=== PATIENT | male | born 1960 | race Caucasian/White ===

== ENCOUNTER 2017-01-02 09:23 | Inpatient (IN) | payer MEDICAID, OTHER ==
[~2017-01-02] VITALS: Ht 165.1 cm; Wt 66.7 kg
[2017-01-02] MEDS ORDERED: SODIUM CHLORIDE 0.9% 1,000 ML IV ONE (09:34)
[2017-01-02] MEDS ORDERED: MORPHINE SULFATE 4 MG/ML CPJ (NOT FOR IM USE) IV STA (09:34)
[2017-01-02] MEDS ORDERED: ONDANSETRON HCL 4MG/2ML VIAL IV STA (09:34)
[2017-01-02 09:55] LABS: HEMATOCRIT. 31.9 % (42.0-52.0); MEAN CORPUSCULAR HEMOGLOBIN 21.4 pg (28.0-32.0); MEAN PLATELET VOLUME 7.5 fl (7.4-10.4); PLATELET 552 x1000/uL (130-400); RED BLOOD CELL COUNT 4.69 mill/uL (4.7-6.1); RED CELL DISTRIBUTION WIDTH 18.5 % (11.6-14.6)
[2017-01-02 10:03] LABS: INR 1.1; PROTHROMBIN TIME 11.5 sec
[2017-01-02 10:05] LABS: CARBON DIOXIDE 27 mEq/L (21-32); CHLORIDE 99 mEq/L (98-107)
[2017-01-02 10:12] LABS: TROPONIN I < 0.02 ng/mL (0.00-0.04)
[2017-01-02 10:43] LABS: PLATELET ESTIMATE INCREASED
[2017-01-02] MEDS ORDERED: LEVOFLOXACIN 750MG PREMIX 150 ML IV ONE (11:15)
[2017-01-02] MEDS ORDERED: SODIUM CHLORIDE 0.9% 1,000 ML IV SCH (11:30)
[2017-01-02] MEDS ORDERED: IPRATROPIUM/ALBUTEROL 0.5-3(2.5)MG/3ML NEB INH PRN (11:30)
[2017-01-02 11:34] LABS: CLARITY URINE CLEAR (CLEAR); COLOR URINE YELLOW (YELLOW); GLUCOSE URINE NEGATIVE (NEGATIVE); KETONES URINE NEGATIVE (NEGATIVE); LEUKOCYTE ESTERASE URINE NEGATIVE (NEGATIVE); NITRITE URINE NEGATIVE (NEGATIVE); OCCULT BLOOD URINE NEGATIVE (NEGATIVE); PH URINE 7.5 (4.5-8.0); PROTEIN URINE NEGATIVE (NEGATIVE); SPECIFIC GRAVITY URINE 1.019 (1.005-1.030); UROBILINOGEN URINE 0.2 E.U./dL (0.2-1.0)
[2017-01-02] MEDS: ONDANSETRON HCL 4MG/2ML VIAL IV PRN ×2 (12:54→18:31)
[2017-01-02] MEDS ORDERED: ONDANSETRON HCL 4MG/2ML VIAL ONE (12:56)
[2017-01-02] MEDS ORDERED: PIPERACILLIN/TAZ 3.375G PREMIX 50 ML IV SCH (14:00)
[2017-01-02 16:07] LABS: CREATINE KINASE MB FRACTION 3.6 ng/mL (0.5-3.6)
[2017-01-02] MEDS: ENOXAPARIN 40MG/0.4ML SYR SUBCUT SCH ×2 (17:00→21:22)
[2017-01-02 17:15] VITALS: BP 129/81
[2017-01-02] MEDS: SODIUM CHLORIDE 0.9% 1,000 ML IV SCH (17:15)
[2017-01-02] MEDS ORDERED: CLOP75TA33 PO (18:16)
[2017-01-02] MEDS ORDERED: OMEP20CA10 PO (18:16)
[2017-01-02] MEDS ORDERED: NIFE-1 PO (18:16)
[2017-01-02] MEDS ORDERED: HYDR12.529 PO (18:16)
[2017-01-02] MEDS ORDERED: ATOR-2 PO (18:16)
[2017-01-02] MEDS ORDERED: VALS160T2 PO (18:16)
[2017-01-02] MEDS ORDERED: GABA-531 PO (18:16)
[2017-01-02 19:29] VITALS: BP 129/81
[2017-01-02 20:00] VITALS: BP 128/80
[2017-01-02] MEDS ORDERED: MEDICATION NOT ON FORMULARY EA (Atorvastatin Calcium 80 MG) PO SCH (21:00)
[2017-01-02] MEDS: ATORVASTATIN CALCIUM 40MG TABLET PO SCH (21:00)
[2017-01-02] MEDS: PIPERACILLIN/TAZ 3.375G PREMIX 50 ML IV SCH (22:56)
[2017-01-02 23:29] LABS: CREATINE KINASE MB FRACTION 2.7 ng/mL (0.5-3.6)
[2017-01-03] VITALS: BP 122/76
[2017-01-03 04:20] VITALS: BP 124/70
[2017-01-03 06:29] LABS: BASOPHILS % 0.6 % (0.0-2.0); EOSINOPHILS % 0.8 % (0.0-5.0); HEMATOCRIT. 27.5 % (42.0-52.0); HEMOGLOBIN. 8.8 g/dL (14.0-18.0); LYMPHOCYTES % 17.5 % (20.0-50.0); MEAN CORPUSCULAR HEMOGLOBIN 21.6 pg (28.0-32.0); MEAN CORPUSCULAR VOLUME 67.6 fL (80.0-94.0); MONOCYTES % 8.9 % (2.0-8.0); NEUTROPHILS % 72.2 % (40.0-76.0); PLATELET 500 x1000/uL (130-400); RED BLOOD CELL COUNT 4.07 mill/uL (4.7-6.1)
[2017-01-03] MEDS: PIPERACILLIN/TAZ 3.375G PREMIX 50 ML IV SCH ×3 (07:06→21:49)
[2017-01-03] MEDS: SODIUM CHLORIDE 0.9% 1,000 ML IV SCH ×3 (07:07→22:01)
[2017-01-03 07:08] LABS: CHLORIDE 105 mEq/L (98-107)
[2017-01-03 07:24] LABS: CARBON DIOXIDE 27 mEq/L (21-32); HDL CHOLESTEROL 30 mg/dL (40-59); LDL CHOLESTEROL 41 mg/dL (5-100); TROPONIN I < 0.02 ng/mL (0.00-0.04)
[2017-01-03] MEDS: OMEPRAZOLE 20MG CAPSULE EXTENDED RELEASE PO SCH (07:40)
[2017-01-03 08:00] VITALS: BP 104/64
[2017-01-03] MEDS: CLOPIDOGREL 75MG TABLET PO SCH ×2 (08:11→16:44)
[2017-01-03] MEDS: NIFEDIPINE XL 30MG TAB PO SCH (08:11)
[2017-01-03] MEDS: LOSARTAN POTASSIUM 100 MG TABLET PO SCH (08:11)
[2017-01-03] MEDS: GABAPENTIN 300MG CAPSULE PO SCH ×2 (08:11→16:44)
[2017-01-03] MEDS ORDERED: HYDROCHLOROTHIAZIDE 12.5MG CAPSULE PO SCH (09:00)
[2017-01-03] MEDS ORDERED: MEDICATION NOT ON FORMULARY EA (Valsartan (Diovan) 1 TAB) PO SCH (09:00)
[2017-01-03] MEDS ORDERED: NIFEDIPINE PO SCH (09:00)
[2017-01-03 12:00] VITALS: BP 122/78
[2017-01-03 16:00] VITALS: BP 127/79
[2017-01-03] MEDS: ASPIRIN 81MG TABLET PO SCH (16:44)
[2017-01-03 20:00] VITALS: BP 119/82
[2017-01-03] MEDS: ATORVASTATIN CALCIUM 40MG TABLET PO SCH (21:49)
[2017-01-03] MEDS ORDERED: MORPHINE SULFATE 2 MG/ML CPJ (NOT FOR IM USE) IV PRN (22:30)
[2017-01-04] VITALS: BP 118/68
[2017-01-04 04:00] VITALS: BP 114/75
[2017-01-04] MEDS: PIPERACILLIN/TAZ 3.375G PREMIX 50 ML IV SCH ×3 (05:57→22:06)
[2017-01-04 06:17] LABS: BASOPHILS % 0.6 % (0.0-2.0); EOSINOPHILS % 4.7 % (0.0-5.0); HEMATOCRIT. 25.8 % (42.0-52.0); HEMOGLOBIN. 8.3 g/dL (14.0-18.0); LYMPHOCYTES % 19.9 % (20.0-50.0); MEAN CORPUSCULAR HEMOGLOBIN 21.8 pg (28.0-32.0); MEAN CORPUSCULAR VOLUME 67.8 fL (80.0-94.0); MEAN PLATELET VOLUME 8.3 fl (7.4-10.4); MONOCYTES % 9.7 % (2.0-8.0); NEUTROPHILS % 65.1 % (40.0-76.0); PLATELET 440 x1000/uL (130-400); RED CELL DISTRIBUTION WIDTH 19.2 % (11.6-14.6)
[2017-01-04 08:00] VITALS: BP 133/100
[2017-01-04] MEDS: OMEPRAZOLE 20MG CAPSULE EXTENDED RELEASE PO SCH (09:18)
[2017-01-04] MEDS: GABAPENTIN 300MG CAPSULE PO SCH ×2 (09:18→17:40)
[2017-01-04] MEDS: NIFEDIPINE XL 30MG TAB PO SCH (09:18)
[2017-01-04] MEDS: CLOPIDOGREL 75MG TABLET PO SCH (09:18)
[2017-01-04] MEDS: LOSARTAN POTASSIUM 100 MG TABLET PO SCH (09:18)
[2017-01-04] MEDS: ASPIRIN 81MG TABLET PO SCH (09:19)
[2017-01-04] MEDS ORDERED: POTASSIUM CHLORIDE 20MEQ TABLET SR PO NR (10:00)
[2017-01-04 12:00] VITALS: BP 119/77
[2017-01-04] MEDS: SODIUM CHLORIDE 0.9% 1,000 ML IV SCH ×2 (14:56→21:59)
[2017-01-04 17:00] VITALS: BP 117/78
[2017-01-04] MEDS: ENOXAPARIN 40MG/0.4ML SYR SUBCUT SCH ×2 (17:40→17:45)
[2017-01-04 20:00] VITALS: BP 108/67
[2017-01-04] MEDS: ATORVASTATIN CALCIUM 40MG TABLET PO SCH (22:05)
[2017-01-05] VITALS: BP 97/70
[2017-01-05 04:00] VITALS: BP 100/62
[2017-01-05] MEDS: PIPERACILLIN/TAZ 3.375G PREMIX 50 ML IV SCH (05:41)
[2017-01-05 05:43] LABS: BASOPHILS % 0.9 % (0.0-2.0); HEMATOCRIT. 26.6 % (42.0-52.0); HEMOGLOBIN. 8.3 g/dL (14.0-18.0); MEAN CORPUSCULAR HEMOGLOBIN 21.4 pg (28.0-32.0); MEAN CORPUSCULAR VOLUME 68.3 fL (80.0-94.0); MEAN PLATELET VOLUME 8.2 fl (7.4-10.4); MONOCYTES % 8.3 % (2.0-8.0); NEUTROPHILS % 62.8 % (40.0-76.0); PLATELET 480 x1000/uL (130-400); RED CELL DISTRIBUTION WIDTH 19.1 % (11.6-14.6)
[2017-01-05 06:32] LABS: PHOSPHORUS 2.5 mg/dL (2.5-4.9)
[2017-01-05 08:00] VITALS: BP 132/92
[2017-01-05] MEDS ORDERED: LIP40 PO (08:17)
[2017-01-05] MEDS ORDERED: LOSA100T3 PO (08:17)
[2017-01-05] MEDS ORDERED: NIFE30TA83 PO (08:17)
[2017-01-05] MEDS ORDERED: ASPI-1160 PO (08:17)
[2017-01-05] MEDS: OMEPRAZOLE 20MG CAPSULE EXTENDED RELEASE PO SCH (08:38)
[2017-01-05] MEDS: LOSARTAN POTASSIUM 100 MG TABLET PO SCH (08:38)
[2017-01-05] MEDS: CLOPIDOGREL 75MG TABLET PO SCH (08:39)
[2017-01-05] MEDS: ASPIRIN 81MG TABLET PO SCH (08:39)
[2017-01-05] MEDS: NIFEDIPINE XL 30MG TAB PO SCH (08:39)
[2017-01-05] MEDS: GABAPENTIN 300MG CAPSULE PO SCH (08:39)
[2017-01-05 12:00] VITALS: BP 130/70
[2017-01-05 14:48] VITALS: BP 129/84
== END 2017-01-05 15:25 | disposition home or self-care (01) | DRG 720 ==
LOC: ER 11:02 → 7WST 11:10
PROVIDERS: ADMIT Internal Medicine; ATTEND Internal Medicine
DX: A41.9 Sepsis, unspecified organism (principal); K56.60 Unspecified intestinal obstruction; N17.9 Acute kidney failure, unspecified; E11.22 Type 2 diabetes mellitus with diabetic chronic kidney disease; D50.9 Iron deficiency anemia, unspecified; E86.0 Dehydration; I12.9 Hypertensive chronic kidney disease with stage 1 through stage 4 chronic kidney disease, or unspecified chronic kidney disease; R60.9 Edema, unspecified; E78.5 Hyperlipidemia, unspecified; E87.6 Hypokalemia; N18.9 Chronic kidney disease, unspecified; K56.7 Ileus, unspecified; Z96.642 Presence of left artificial hip joint; I25.10 Atherosclerotic heart disease of native coronary artery without angina pectoris; I25.2 Old myocardial infarction; Z87.891 Personal history of nicotine dependence; Z95.5 Presence of coronary angioplasty implant and graft
CPT/HCPCS: 36415; 71010; 74176; 76770; 80048; 80053; 80061; 81003; 82550; 82553; 83540; 83550; 83690; 83735; 84100; 84443; 84484; 85025; 85044; 85610; 87040; 93005; 93306; 93970; 96361; 96365; 96367; 96375; 99285; J1650; J1956; J2270; J2405; J2543; J7030

== ENCOUNTER 2017-02-24 12:06 | Inpatient (IN) | payer OTHER ==
[~2017-02-24] VITALS: Ht 167.6 cm; Wt 76.2 kg
[~2017-02-24 12:06] MED LIST: ASPI-1160 PO; ATOR-2 PO; CLOP75TA33 PO; GABA-531 PO; HYDR12.529 PO; LIP40 PO; LOSA100T3 PO; NIFE30TA83 PO; OMEP20CA10 PO
[2017-02-24] MEDS ORDERED: SODIUM CHLORIDE 0.9% 500 ML IV ONE (12:40)
[2017-02-24 12:57] LABS: BASOPHILS % 1.3 % (0.0-2.0); EOSINOPHILS % 1.4 % (0.0-5.0); HEMATOCRIT. 26.6 % (42.0-52.0); HEMOGLOBIN. 8.6 g/dL (14.0-18.0); LYMPHOCYTES % 17.1 % (20.0-50.0); MEAN CORPUSCULAR HEMOGLOBIN 22.9 pg (28.0-32.0); MEAN CORPUSCULAR VOLUME 70.9 fL (80.0-94.0); MEAN PLATELET VOLUME 7.4 fl (7.4-10.4); MONOCYTES % 9.2 % (2.0-8.0); PLATELET 466 x1000/uL (130-400); RED BLOOD CELL COUNT 3.76 mill/uL (4.7-6.1); RED CELL DISTRIBUTION WIDTH 22.6 % (11.6-14.6)
[2017-02-24 13:08] LABS: CHLORIDE 101 mEq/L (98-107)
[2017-02-24 13:12] LABS: CARBON DIOXIDE 30 mEq/L (21-32)
[2017-02-24 13:15] LABS: INR 1.1; PARTIAL THROMBOPLASTIN TIME 27.5 sec (24.0-34.0); PROTHROMBIN TIME 11.4 sec
[2017-02-24 13:17] LABS: CREATINE KINASE 75 IU/L (39-308); TROPONIN I < 0.02 ng/mL (0.00-0.04)
[2017-02-24 13:21] LABS: CREATINE KINASE MB FRACTION 1.2 ng/mL (0.5-3.6); T4 FREE 1.13 ng/dL (0.76-1.46)
[2017-02-24 13:56] LABS: PLATELET ESTIMATE INCREASED
[2017-02-24] MEDS ORDERED: VALS160T2 PO (18:08)
[2017-02-24] MEDS ORDERED: NITR0.4T49 SL (18:08)
[2017-02-24] MEDS ORDERED: HYDR-3933 PO (18:08)
[2017-02-24] MEDS ORDERED: METO-539 PO (18:08)
[2017-02-24] MEDS ORDERED: VANC1PLA9 IV (19:35)
[2017-02-24] MEDS ORDERED: DOCUSATE SODIUM 100MG CAPSULE PO PRN (20:45)
[2017-02-24] MEDS ORDERED: ACETAMINOPHEN 325MG TABLET PO PRN (20:45)
[2017-02-24] MEDS ORDERED: CLONIDINE 0.1MG TABLET PO PRN (20:45)
[2017-02-24] MEDS ORDERED: MAGNESIUM/ALUMINUM HYDROXIDE/SIMETHICONE 30ML UDC PO PRN (20:45)
[2017-02-24] MEDS ORDERED: ONDANSETRON HCL 4MG/2ML VIAL IV PRN (20:45)
[2017-02-24] MEDS ORDERED: IPRATROPIUM/ALBUTEROL 0.5-3(2.5)MG/3ML NEB INH PRN (20:45)
[2017-02-24] MEDS ORDERED: HYDROCODONE/ACETAMINOPHEN 5/325MG TABLET PO PRN (20:45)
[2017-02-24] MEDS: MORPHINE SULFATE 2 MG/ML CPJ (NOT FOR IM USE) IV PRN (21:26)
[2017-02-24] MEDS ORDERED: DEXTROSE 50% WATER 50ML SYRINGE IV PRN (21:45)
[2017-02-25 00:46] LABS: CARBON DIOXIDE 29 mEq/L (21-32); CHLORIDE 103 mEq/L (98-107)
[2017-02-25 00:53] LABS: C REACTIVE PROTEIN QUANT 4.5 mg/L (0.0-3.0); CREATINE KINASE 58 IU/L (39-308); CREATINE KINASE MB FRACTION 1.1 ng/mL (0.5-3.6); TOTAL IRON BINDING CAPACITY 328 ug/dL (250-450); TROPONIN I < 0.02 ng/mL (0.00-0.04)
[2017-02-25] MEDS: LORAZEPAM 0.5MG TABLET PO PRN (01:04)
[2017-02-25 01:34] LABS: CLARITY URINE CLEAR (CLEAR); COLOR URINE YELLOW (YELLOW); KETONES URINE NEGATIVE (NEGATIVE); LEUKOCYTE ESTERASE URINE NEGATIVE (NEGATIVE); NITRITE URINE NEGATIVE (NEGATIVE); OCCULT BLOOD URINE NEGATIVE (NEGATIVE); PROTEIN URINE NEGATIVE (NEGATIVE); SPECIFIC GRAVITY URINE 1.013 (1.005-1.030); UROBILINOGEN URINE 0.2 E.U./dL (0.2-1.0)
[2017-02-25 01:43] LABS: *AMPHETAMINES SCREEN URINE NEGATIVE (NEGATIVE); *BARBITURATES SCREEN URINE NEGATIVE (NEGATIVE); *BENZODIAZEPINES SCREEN URINE NEGATIVE (NEGATIVE); *COCAINE SCREEN URINE NEGATIVE (NEGATIVE); CANNABINOID URINE SCREEN NEGATIVE (NEGATIVE); METHADONE URINE SCREEN NEGATIVE (NEGATIVE); OPIATES URINE SCREEN PRESUMTIVE POSITIVE (NEGATIVE); PHENCYCLIDINE URINE SCREEN NEGATIVE (NEGATIVE)
[2017-02-25] MEDS: BLOOD SUGAR DIAGNOSTIC STRIP TEST SCH ×4 (05:56→21:00)
[2017-02-25 06:52] LABS: BASOPHILS % 2.6 % (0.0-2.0); EOSINOPHILS % 7.1 % (0.0-5.0); HEMATOCRIT. 27.2 % (42.0-52.0); HEMOGLOBIN. 8.7 g/dL (14.0-18.0); LYMPHOCYTES % 26.1 % (20.0-50.0); MEAN CORPUSCULAR HEMOGLOBIN 22.8 pg (28.0-32.0); MONOCYTES % 10.9 % (2.0-8.0); NEUTROPHILS % 53.3 % (40.0-76.0); PLATELET 456 x1000/uL (130-400); RED BLOOD CELL COUNT 3.83 mill/uL (4.7-6.1); RED CELL DISTRIBUTION WIDTH 22.6 % (11.6-14.6)
[2017-02-25 07:13] LABS: CREATINE KINASE 51 IU/L (39-308); CREATINE KINASE MB FRACTION 1.1 ng/mL (0.5-3.6); HDL CHOLESTEROL 32 mg/dL (40-59); LDL CHOLESTEROL 47 mg/dL (5-100); TROPONIN I < 0.02 ng/mL (0.00-0.04)
[2017-02-25] MEDS: INSULIN LISPRO 100 UNITS/ML SUBCUT SCH ×4 (08:10→21:00)
[2017-02-25] MEDS: CLOPIDOGREL 75MG TABLET PO SCH (08:43)
[2017-02-25] MEDS: HYDROCHLOROTHIAZIDE 12.5MG CAPSULE PO SCH (08:43)
[2017-02-25] MEDS: LOSARTAN POTASSIUM 100 MG TABLET PO SCH (08:44)
[2017-02-25] MEDS: METOPROLOL TARTRATE 50MG TABLET PO SCH (08:44)
[2017-02-25] MEDS: OMEPRAZOLE 20MG CAPSULE EXTENDED RELEASE PO SCH (08:45)
[2017-02-25] MEDS: NIFEDIPINE XL 30MG TAB PO SCH (08:45)
[2017-02-25] MEDS: ASPIRIN 81MG TABLET PO SCH (08:45)
[2017-02-25] MEDS ORDERED: MEDICATION NOT ON FORMULARY EA (Valsartan (Diovan) 1 TAB) PO SCH (09:00)
[2017-02-25] MEDS: GABAPENTIN 300MG CAPSULE PO SCH ×2 (09:08→17:03)
[2017-02-25 11:03] LABS: FOLIC ACID (FOLATE) SERUM 19.3 ng/mL (>5.38)
[2017-02-25 11:24] LABS: CARCINO EMBRYONIC ANTIGEN 0.2 ng/ml; PROSTRATE SPECIFIC AG TOTAL 0.77 ng/mL (0.0-4.0)
[2017-02-25] MEDS ORDERED: VANCOMYCIN 1250MG in DEXTROSE 5% WATER 250ML IV NR (17:00)
[2017-02-25] MEDS: VANCOMYCIN 1250MG in DEXTROSE 5% WATER 250ML IV SCH (17:24)
[2017-02-25] MEDS: MORPHINE SULFATE 2 MG/ML CPJ (NOT FOR IM USE) IV PRN (19:55)
[2017-02-25] MEDS: ATORVASTATIN CALCIUM 40MG TABLET PO SCH (20:31)
[2017-02-26] MEDS: LORAZEPAM 0.5MG TABLET PO PRN (00:36)
[2017-02-26] MEDS ORDERED: VANCOMYCIN 750 MG PREMIX 150 ML IV SCH (05:00)
[2017-02-26 05:56] LABS: BASOPHILS % 1.7 % (0.0-2.0); EOSINOPHILS % 7.6 % (0.0-5.0); HEMATOCRIT. 28.9 % (42.0-52.0); HEMOGLOBIN. 9.3 g/dL (14.0-18.0); LYMPHOCYTES % 22.7 % (20.0-50.0); MEAN CORPUSCULAR HEMOGLOBIN 23.1 pg (28.0-32.0); MONOCYTES % 10.1 % (2.0-8.0); NEUTROPHILS % 57.9 % (40.0-76.0); PLATELET 472 x1000/uL (130-400); RED BLOOD CELL COUNT 4.05 mill/uL (4.7-6.1); RED CELL DISTRIBUTION WIDTH 22.1 % (11.6-14.6)
[2017-02-26] MEDS: BLOOD SUGAR DIAGNOSTIC STRIP TEST SCH ×4 (06:00→21:18)
[2017-02-26 06:24] LABS: MEAN CORPUSCULAR VOLUME 71.3 fL (80.0-94.0)
[2017-02-26] MEDS: INSULIN LISPRO 100 UNITS/ML SUBCUT SCH ×4 (08:10→21:00)
[2017-02-26] MEDS: VANCOMYCIN 1250MG in DEXTROSE 5% WATER 250ML IV SCH (08:32)
[2017-02-26] MEDS: ASPIRIN 81MG TABLET PO SCH (08:32)
[2017-02-26] MEDS: NIFEDIPINE XL 30MG TAB PO SCH (08:32)
[2017-02-26] MEDS: HYDROCHLOROTHIAZIDE 12.5MG CAPSULE PO SCH (08:32)
[2017-02-26] MEDS: FERROUS SULFATE 325MG TABLET PO SCH ×3 (08:32→16:54)
[2017-02-26] MEDS: LOSARTAN POTASSIUM 100 MG TABLET PO SCH (08:32)
[2017-02-26] MEDS: CLOPIDOGREL 75MG TABLET PO SCH (08:33)
[2017-02-26] MEDS: METOPROLOL TARTRATE 50MG TABLET PO SCH (08:33)
[2017-02-26] MEDS: GABAPENTIN 300MG CAPSULE PO SCH ×2 (08:33→16:54)
[2017-02-26] MEDS: OMEPRAZOLE 20MG CAPSULE EXTENDED RELEASE PO SCH (08:33)
[2017-02-26] MEDS: MORPHINE SULFATE 2 MG/ML CPJ (NOT FOR IM USE) IV PRN ×2 (09:05→18:22)
[2017-02-26] MEDS: ATORVASTATIN CALCIUM 40MG TABLET PO SCH (21:18)
[2017-02-27] MEDS: MORPHINE SULFATE 2 MG/ML CPJ (NOT FOR IM USE) IV PRN ×2 (02:08→14:11)
[2017-02-27] MEDS: BLOOD SUGAR DIAGNOSTIC STRIP TEST SCH ×3 (07:21→17:27)
[2017-02-27] MEDS: INSULIN LISPRO 100 UNITS/ML SUBCUT SCH ×3 (07:21→17:28)
[2017-02-27] MEDS: GABAPENTIN 300MG CAPSULE PO SCH ×2 (08:33→17:28)
[2017-02-27] MEDS: CLOPIDOGREL 75MG TABLET PO SCH (08:34)
[2017-02-27] MEDS: VANCOMYCIN 1250MG in DEXTROSE 5% WATER 250ML IV SCH (08:34)
[2017-02-27] MEDS: FERROUS SULFATE 325MG TABLET PO SCH ×3 (08:34→17:28)
[2017-02-27] MEDS: METOPROLOL TARTRATE 50MG TABLET PO SCH (08:34)
[2017-02-27] MEDS: NIFEDIPINE XL 30MG TAB PO SCH (08:35)
[2017-02-27] MEDS: LOSARTAN POTASSIUM 100 MG TABLET PO SCH (08:35)
[2017-02-27] MEDS: ASPIRIN 81MG TABLET PO SCH (08:35)
[2017-02-27] MEDS: HYDROCHLOROTHIAZIDE 12.5MG CAPSULE PO SCH (08:40)
[2017-02-27] MEDS ORDERED: FAMOTIDINE 20MG TABLET PO SCH (09:00)
[2017-02-27 16:00] VITALS: BP 111/75
[2017-02-28] MEDS ORDERED: METOPROLOL TARTRATE 25MG TABLET PO SCH (09:00)
== END 2017-02-27 19:00 | disposition home or self-care (01) | DRG 469 ==
LOC: ER 12:06 → 7WST 13:33 → EDBEDREQ 13:39 → ENRESERV 13:40 → ER 17:18
PROVIDERS: ADMIT Internal Medicine; ATTEND Internal Medicine
DX: N17.9 Acute kidney failure, unspecified (principal); D69.6 Thrombocytopenia, unspecified; I11.0 Hypertensive heart disease with heart failure; I50.9 Heart failure, unspecified; D50.9 Iron deficiency anemia, unspecified; D63.8 Anemia in other chronic diseases classified elsewhere; E78.00 Pure hypercholesterolemia, unspecified; E78.5 Hyperlipidemia, unspecified; I25.10 Atherosclerotic heart disease of native coronary artery without angina pectoris; Z96.649 Presence of unspecified artificial hip joint; M19.90 Unspecified osteoarthritis, unspecified site; R41.0 Disorientation, unspecified; F99 Mental disorder, not otherwise specified; R00.2 Palpitations; I25.2 Old myocardial infarction; Z87.891 Personal history of nicotine dependence; Z95.1 Presence of aortocoronary bypass graft
CPT/HCPCS: 36415; 71010; 78582; 80048; 80053; 80061; 80202; 80305; 81003; 82270; 82378; 82550; 82553; 82607; 82728; 82746; 82962; 83540; 83550; 83615; 83690; 83735; 83880; 84132; 84153; 84439; 84443; 84484; 85025; 85044; 85379; 85610; 85651; 85730; 86140; 87040; 93005; 93306; 93970; 96360; 99285; A9558; J2270; J2405; J3370; J7040; J7050; J7060

== ENCOUNTER 2017-03-17 11:41 | Inpatient (IN) | payer OTHER ==
[~2017-03-17] VITALS: Ht 160 cm; Wt 77.6 kg
[~2017-03-17 11:41] MED LIST changes: +HYDR-3933 PO; -LIP40 PO; -LOSA100T3 PO; +METO50TA5 PO; +NITR0.4T3 SL; +VALS160T2 PO; +VANC1PLA9 IV
[2017-03-17] MEDS ORDERED: MEROPENEM 1,000 MG in SODIUM CHLORIDE 0.9% 100 ML IV ONE (12:15)
[2017-03-17] MEDS ORDERED: VANCOMYCIN 1 G PREMIX 200 ML IV ONE (12:15)
[2017-03-17] MEDS ORDERED: SODIUM CHLORIDE 0.9% 1000ML BAG (SEPSIS BOLUS) IV ONE (12:15)
[2017-03-17] MEDS ORDERED: ACETAMINOPHEN 650MG SUPP PR STA (12:15)
[2017-03-17 12:58] LABS: BASOPHILS % 0.5 % (0.0-2.0); EOSINOPHILS % 0.4 % (0.0-5.0); HEMATOCRIT. 29.9 % (42.0-52.0); HEMOGLOBIN. 9.4 g/dL (14.0-18.0); LYMPHOCYTES % 9.8 % (20.0-50.0); MEAN CORPUSCULAR HEMOGLOBIN 23.1 pg (28.0-32.0); MEAN CORPUSCULAR VOLUME 73.3 fL (80.0-94.0); MEAN PLATELET VOLUME 7.3 fl (7.4-10.4); MONOCYTES % 0.2 % (2.0-8.0); NEUTROPHILS % 89.1 % (40.0-76.0); PLATELET 327 x1000/uL (130-400); RED BLOOD CELL COUNT 4.09 mill/uL (4.7-6.1); RED CELL DISTRIBUTION WIDTH 21.8 % (11.6-14.6)
[2017-03-17 13:12] LABS: CARBON DIOXIDE 22 mEq/L (21-32); CHLORIDE 106 mEq/L (98-107)
[2017-03-17 13:15] LABS: TROPONIN I < 0.02 ng/mL (0.00-0.04)
[2017-03-17 13:18] LABS: INR 1.3
[2017-03-17 13:24] LABS: CLARITY URINE TURBID (CLEAR); COLOR URINE YELLOW (YELLOW); GLUCOSE URINE NEGATIVE (NEGATIVE); KETONES URINE NEGATIVE (NEGATIVE); LEUKOCYTE ESTERASE URINE TRACE (NEGATIVE); NITRITE URINE NEGATIVE (NEGATIVE); OCCULT BLOOD URINE NEGATIVE (NEGATIVE); PROTEIN URINE 1+ (NEGATIVE)
[2017-03-17] MEDS ORDERED: NITROGLYCERIN 0.4MG TABLET SL SL PRN (14:00)
[2017-03-17] MEDS ORDERED: DOCUSATE SODIUM 100MG CAPSULE PO PRN (14:00)
[2017-03-17] MEDS ORDERED: IPRATROPIUM/ALBUTEROL 0.5-3(2.5)MG/3ML NEB INH PRN (14:00)
[2017-03-17] MEDS ORDERED: ONDANSETRON HCL 4MG/2ML VIAL IV PRN (14:00)
[2017-03-17] MEDS ORDERED: GUAIFENESIN 200MG/10ML SUGAR FREE UDC PO PRN (14:00)
[2017-03-17] MEDS ORDERED: MAGNESIUM/ALUMINUM HYDROXIDE/SIMETHICONE 30ML UDC PO PRN (14:00)
[2017-03-17] MEDS ORDERED: NA PHOS,M-B/NA PHOS,DI-BA ENEMA 118ML PR PRN (14:00)
[2017-03-17] MEDS ORDERED: ZOLPIDEM TARTRATE 5MG TABLET PO PRN (14:00)
[2017-03-17] MEDS ORDERED: ACETAMINOPHEN 325MG TABLET PO PRN (14:00)
[2017-03-17] MEDS ORDERED: DIPHENHYDRAMINE 50MG/ML VIAL IV PRN (14:00)
[2017-03-17] MEDS ORDERED: LORAZEPAM 2MG/ML CPJ IV PRN (14:00)
[2017-03-17 17:00] VITALS: BP 115/69
[2017-03-17 19:18] LABS: TOTAL IRON BINDING CAPACITY 353 ug/dL (250-450)
[2017-03-17 19:46] LABS: FOLIC ACID (FOLATE) SERUM 17.1 ng/mL (>5.38)
[2017-03-17 20:00] VITALS: BP 94/56
[2017-03-17] MEDS ORDERED: PNEUMOCOCCAL 23-VAL P-SAC VAC 0.5 ML IM ONE (20:00)
[2017-03-17] MEDS: ENOXAPARIN 40MG/0.4ML SYR SUBCUT SCH (20:40)
[2017-03-17] MEDS: PIPERACILLIN/TAZ 3.375G PREMIX 50 ML IV SCH (20:40)
[2017-03-17] MEDS ORDERED: VANCOMYCIN 1 G PREMIX 200 ML IV SCH (21:00)
[2017-03-17] MEDS: SODIUM CHLORIDE 0.9% 1,000 ML IV SCH (21:40)
[2017-03-17] MEDS: IPRATROPIUM/ALBUTEROL 0.5-3(2.5)MG/3ML NEB HHN SCH (23:54)
[2017-03-18] VITALS: BP 98/73
[2017-03-18] MEDS: TRAMADOL 50MG TABLET PO PRN ×2 (02:07→11:51)
[2017-03-18 04:00] VITALS: BP 98/63
[2017-03-18] MEDS: IPRATROPIUM/ALBUTEROL 0.5-3(2.5)MG/3ML NEB HHN SCH ×5 (04:06→20:52)
[2017-03-18] MEDS: PIPERACILLIN/TAZ 3.375G PREMIX 50 ML IV SCH ×3 (04:35→22:50)
[2017-03-18 08:00] VITALS: BP 90/65
[2017-03-18] MEDS: PANTOPRAZOLE SODIUM 40 MG/VIAL IV SCH (08:59)
[2017-03-18] MEDS: ZINC SULFATE 220 MG ( 50 ) CAPSULE PO SCH (08:59)
[2017-03-18] MEDS: SODIUM CHLORIDE 0.9% 1,000 ML IV SCH ×2 (11:50→21:31)
[2017-03-18 16:00] VITALS: BP 90/60
[2017-03-18 20:00] VITALS: BP 106/68
[2017-03-18] MEDS: ENOXAPARIN 40MG/0.4ML SYR SUBCUT SCH (21:37)
[2017-03-18] MEDS ORDERED: VANCOMYCIN 1 G PREMIX 200 ML IV SCH (23:00)
[2017-03-19] VITALS: BP 95/59
[2017-03-19] MEDS: IPRATROPIUM/ALBUTEROL 0.5-3(2.5)MG/3ML NEB HHN SCH ×6 (00:37→20:56)
[2017-03-19 04:00] VITALS: BP 100/69
[2017-03-19] MEDS: PIPERACILLIN/TAZ 3.375G PREMIX 50 ML IV SCH ×3 (05:17→21:28)
[2017-03-19 08:00] VITALS: BP 107/80
[2017-03-19] MEDS: ZINC SULFATE 220 MG ( 50 ) CAPSULE PO SCH (09:27)
[2017-03-19] MEDS: PANTOPRAZOLE SODIUM 40 MG/VIAL IV SCH (09:27)
[2017-03-19] MEDS: SODIUM CHLORIDE 0.9% 1,000 ML IV SCH ×2 (09:45→21:37)
[2017-03-19 12:00] VITALS: BP 123/90
[2017-03-19] MEDS ORDERED: POTASSIUM CHLORIDE 20MEQ TABLET SR PO NR (12:45)
[2017-03-19 16:00] VITALS: BP 128/84
[2017-03-19 20:00] VITALS: BP 114/73
[2017-03-19] MEDS: MORPHINE SULFATE 2 MG/ML CPJ (NOT FOR IM USE) IV PRN (20:06)
[2017-03-19] MEDS: ENOXAPARIN 40MG/0.4ML SYR SUBCUT SCH (20:09)
[2017-03-20 00:11] VITALS: BP 99/59
[2017-03-20] MEDS: IPRATROPIUM/ALBUTEROL 0.5-3(2.5)MG/3ML NEB HHN SCH ×5 (00:20→20:55)
[2017-03-20 04:00] VITALS: BP 119/77
[2017-03-20] MEDS: PIPERACILLIN/TAZ 3.375G PREMIX 50 ML IV SCH ×2 (05:38→13:55)
[2017-03-20 08:00] VITALS: BP 146/96
[2017-03-20] MEDS: FAMOTIDINE 20MG TABLET PO SCH (09:43)
[2017-03-20] MEDS: ZINC SULFATE 220 MG ( 50 ) CAPSULE PO SCH (09:43)
[2017-03-20] MEDS: VANCOMYCIN 1 G PREMIX 200 ML IV SCH (10:12)
[2017-03-20 12:00] VITALS: BP 140/91
[2017-03-20 16:00] VITALS: BP_SYST 136; BP_SYST 146; BP_DIAS 92; BP_DIAS 96
[2017-03-20] MEDS ORDERED: LEVOFLOXACIN 500MG PREMIX 100 ML IV SCH (16:00)
[2017-03-20] MEDS: SODIUM CHLORIDE 0.9% 1,000 ML IV SCH (17:13)
[2017-03-20] MEDS: CLONIDINE 0.1MG TABLET PO PRN (17:22)
[2017-03-20] MEDS: ENOXAPARIN 40MG/0.4ML SYR SUBCUT SCH (19:48)
[2017-03-20] MEDS: MORPHINE SULFATE 2 MG/ML CPJ (NOT FOR IM USE) IV PRN (19:54)
[2017-03-20 20:00] VITALS: BP 150/95
[2017-03-21] VITALS: BP 140/90
[2017-03-21] MEDS: IPRATROPIUM/ALBUTEROL 0.5-3(2.5)MG/3ML NEB HHN SCH ×3 (00:30→07:27)
[2017-03-21 04:00] VITALS: BP 154/92
[2017-03-21] MEDS: CLONIDINE 0.1MG TABLET PO PRN (04:43)
[2017-03-21 07:39] VITALS: BP 129/90
[2017-03-21] MEDS: ZINC SULFATE 220 MG ( 50 ) CAPSULE PO SCH (07:59)
[2017-03-21] MEDS: FAMOTIDINE 20MG TABLET PO SCH (07:59)
[2017-03-21] MEDS: VANCOMYCIN 1 G PREMIX 200 ML IV SCH (08:00)
[2017-03-21] MEDS: SODIUM CHLORIDE 0.9% 1,000 ML IV SCH (08:01)
[2017-03-21 12:04] VITALS: BP 135/93
[2017-03-21] MEDS: MORPHINE SULFATE 2 MG/ML CPJ (NOT FOR IM USE) IV PRN (14:05)
[2017-03-21 15:13] VITALS: BP 135/93
== END 2017-03-21 16:02 | disposition home or self-care (01) | DRG 720 ==
LOC: ER 12:19 → CANRESERV 13:13 → ENRESERV 13:13 → EDBEDREQ 13:38 → EDBEDREQTM 13:38 → EDBEDREQSVC 13:38 → ENRESERV 14:23 → EDBEDREQSVC 14:23 → 8WST 14:29 → EDBEDREQ 14:30 → EDBEDREQTM 14:30
PROVIDERS: ADMIT Internal Medicine; ATTEND Internal Medicine
PROC: 02HV33Z Insertion of Infusion Device into Superior Vena Cava, Percutaneous Approach (ICD-10-PCS; principal; 2017-03-18)
PROC: B548ZZA Ultrasonography of Superior Vena Cava, Guidance (ICD-10-PCS; 2017-03-18)
PROC: B548ZZA Ultrasonography of Superior Vena Cava, Guidance (ICD-10-PCS; 2017-03-18)
PROC: 02HV33Z Insertion of Infusion Device into Superior Vena Cava, Percutaneous Approach (ICD-10-PCS; 2017-03-21)
PROC: B5181ZA Fluoroscopy of Superior Vena Cava using Low Osmolar Contrast, Guidance (ICD-10-PCS; 2017-03-21)
PROC: B548ZZA Ultrasonography of Superior Vena Cava, Guidance (ICD-10-PCS; 2017-03-21)
DX: A41.59 Other Gram-negative sepsis (principal); N17.0 Acute kidney failure with tubular necrosis; I10 Essential (primary) hypertension; N39.0 Urinary tract infection, site not specified; B96.4 Proteus (mirabilis) (morganii) as the cause of diseases classified elsewhere; D63.8 Anemia in other chronic diseases classified elsewhere; E44.0 Moderate protein-calorie malnutrition; E78.00 Pure hypercholesterolemia, unspecified; Z96.642 Presence of left artificial hip joint; Z79.899 Other long term (current) drug therapy; I25.2 Old myocardial infarction; Z68.30 Body mass index [BMI] 30.0-30.9, adult
CPT/HCPCS: 36415; 36569; 71010; 73502; 76937; 77001; 80048; 80053; 80061; 80202; 81001; 82607; 82746; 82962; 83036; 83540; 83550; 83605; 83880; 84484; 85025; 85610; 87040; 87077; 87086; 87186; 93005; 93306; 93970; 94640; 94664; 96365; 97162; 99291; C1725; C9113; J1650; J1956; J2185; J2270; J2543; J3370; J7030; J7040; J7050; J7620

== ENCOUNTER 2017-06-13 07:35 | Emergency (ER) | payer OTHER ==
[~2017-06-13] VITALS: Ht 165.1 cm; Wt 80.5 kg
[~2017-06-13 07:35] MED LIST changes: -NITR0.4T3 SL; +NITR0.4T49 SL
[2017-06-13] MEDS ORDERED: ACETAMINOPHEN WITH CODEINE 300/30MG TABLET PO ONE (08:15)
[2017-06-13 08:44] LABS: BASOPHILS % 1.9 % (0.0-2.0); EOSINOPHILS % 2.8 % (0.0-5.0); HEMATOCRIT. 25.1 % (42.0-52.0); HEMOGLOBIN. 7.8 g/dL (14.0-18.0); LYMPHOCYTES % 14.8 % (20.0-50.0); MEAN CORPUSCULAR HEMOGLOBIN 20.9 pg (28.0-32.0); MEAN CORPUSCULAR VOLUME 67.1 fL (80.0-94.0); MEAN PLATELET VOLUME 7.3 fl (7.4-10.4); MONOCYTES % 6.9 % (2.0-8.0); NEUTROPHILS % 73.6 % (40.0-76.0); PLATELET 728 x1000/uL (130-400); RED BLOOD CELL COUNT 3.74 mill/uL (4.7-6.1); RED CELL DISTRIBUTION WIDTH 19.2 % (11.6-14.6)
[2017-06-13 08:52] LABS: INR 1.1; PROTHROMBIN TIME 11.1 sec (9.4-11.6)
[2017-06-13 09:00] LABS: CARBON DIOXIDE 26 mEq/L (21-32); CHLORIDE 108 mEq/L (98-107)
[2017-06-13 09:16] LABS: PLATELET ESTIMATE INCREASED
[2017-06-13] MEDS ORDERED: MORPHINE SULFATE 4 MG/ML CPJ (NOT FOR IM USE) IV ONE (10:45)
[2017-06-13] MEDS ORDERED: SODIUM CHLORIDE 0.9% 1,000 ML IV ONE (13:18)
[2017-06-13 14:17] VITALS: BP 108/58
[2017-06-13 14:19] LABS: BASOPHILS % 0.9 % (0.0-2.0); LYMPHOCYTES % 15.4 % (20.0-50.0); MEAN CORPUSCULAR HEMOGLOBIN 20.7 pg (28.0-32.0); MEAN CORPUSCULAR VOLUME 67.3 fL (80.0-94.0); MEAN PLATELET VOLUME 7.3 fl (7.4-10.4); MONOCYTES % 6.6 % (2.0-8.0); NEUTROPHILS % 76.1 % (40.0-76.0); PLATELET 576 x1000/uL (130-400); RED BLOOD CELL COUNT 3.05 mill/uL (4.7-6.1); RED CELL DISTRIBUTION WIDTH 19.5 % (11.6-14.6)
[2017-06-13 14:31] LABS: HEMATOCRIT. 20.5 % (42.0-52.0); HEMOGLOBIN. 6.3 g/dL (14.0-18.0)
== END 2017-06-13 14:57 | disposition short-term general hospital (02) ==
LOC: ER 07:42 → CANBEDREQ 11:26 → ER 14:57
DX: M96.831 Postprocedural hemorrhage of a musculoskeletal structure following other procedure (principal); I10 Essential (primary) hypertension; E78.00 Pure hypercholesterolemia, unspecified; Z79.82 Long term (current) use of aspirin
CPT/HCPCS: 36415; 73502; 80053; 85025; 85610; 86850; 86900; 86901; 93005; 96361; 96374; 99285; J2270; J7030; X7700; Z7610

== ENCOUNTER 2020-07-30 23:11 | Inpatient (IN) | payer OTHER ==
[~2020-07-30] VITALS: Ht 172.7 cm; Wt 93.0 kg
[~2020-07-30 23:11] MED LIST changes: +METO-539 PO; -METO50TA5 PO; -OMEP20CA10 PO; +OMEP20CA14 PO
[2020-07-31 00:20] LABS: BASOPHILS % 0.9 % (0.0-2.0); EOSINOPHILS % 1.4 % (0.0-5.0); HEMATOCRIT. 42.6 % (42.0-52.0); HEMOGLOBIN. 14.6 g/dL (14.0-18.0); MEAN CORPUSCULAR HEMOGLOBIN 29.5 pg (28.0-32.0); MEAN CORPUSCULAR VOLUME 86.1 fL (80.0-94.0); MEAN PLATELET VOLUME 7.9 fl (7.4-10.4); MONOCYTES % 4.7 % (2.0-8.0); PLATELET 331 x1000/uL (130-400); RED BLOOD CELL COUNT 4.94 mill/uL (4.7-6.1); RED CELL DISTRIBUTION WIDTH 15.2 % (11.6-14.6)
[2020-07-31 00:24] LABS: ETHANOL BLOOD 236 mg/dL
[2020-07-31 00:33] LABS: PARTIAL THROMBOPLASTIN TIME 28.1 sec (23.4-31.0); PROTHROMBIN TIME 10.9 sec (9.6-11.0)
[2020-07-31] MEDS ORDERED: ONDANSETRON HCL 4MG/2ML INJ IV SCH (03:00)
[2020-07-31] MEDS: MORPHINE SULFATE 4 MG/ML CPJ (NOT FOR IM USE) IV PRN ×2 (03:18→05:18)
[2020-07-31] MEDS ORDERED: CLONIDINE HCL 0.1MG/24HR PATCH TD SCH (04:30)
[2020-07-31] MEDS ORDERED: IOHEXOL-350 100 ML BOTTLE ONE (05:13)
[2020-07-31] MEDS ORDERED: LORAZEPAM 2MG/ML CPJ IM PRN (10:15)
[2020-07-31] MEDS ORDERED: POTASSIUM CHLORIDE 20MEQ TABLET SR PO NR (10:15)
[2020-07-31] MEDS ORDERED: HYDROCODONE/ACETAMINOPHEN 5/325MG TABLET PO PRN (10:15)
[2020-07-31] MEDS: DEXT 5%/0.45% NACL 1000ML 1,000 ML IV SCH (10:30)
[2020-07-31] MEDS ORDERED: FOLIC ACID 1 MG, THIAMINE HCL 100 MG, MVI, ADULT NO.1 10 ML in DEXTROSE 5% WATER 1,000 ML IV SCH ×4 (12:00)
[2020-07-31] MEDS ORDERED: LORAZEPAM 2MG/ML CPJ IV PRN (16:30)
[2020-07-31] MEDS: CHLORDIAZEPOXIDE 25MG CAPSULE PO SCH (16:30)
[2020-07-31] MEDS ORDERED: CLONIDINE 0.1MG TABLET PO NR (16:39)
[2020-07-31] MEDS: CLONIDINE 0.1MG TABLET PO PRN (16:55)
[2020-07-31] MEDS: LOSARTAN POTASSIUM 100 MG TABLET PO SCH (17:00)
[2020-08-01] MEDS: CHLORDIAZEPOXIDE 25MG CAPSULE PO SCH ×4 (01:20→21:12)
[2020-08-01] MEDS: DEXT 5%/0.45% NACL 1000ML 1,000 ML IV SCH ×3 (01:30→16:30)
[2020-08-01] MEDS: HYDRALAZINE HCL 100MG TABLET PO SCH ×4 (01:30→21:12)
[2020-08-01] MEDS: MORPHINE SULFATE 4 MG/ML CPJ (NOT FOR IM USE) IV PRN ×3 (04:49→23:21)
[2020-08-01] MEDS: CLONIDINE 0.1MG TABLET PO PRN (04:50)
[2020-08-01 08:00] VITALS: BP 140/105
[2020-08-01 08:00] LABS: BASOPHILS % 0.5 % (0.0-2.0); EOSINOPHILS % 0.2 % (0.0-5.0); HEMOGLOBIN. 14.2 g/dL (14.0-18.0); LYMPHOCYTES % 15.6 % (20.0-50.0); MEAN CORPUSCULAR HEMOGLOBIN 28.1 pg (28.0-32.0); MEAN CORPUSCULAR VOLUME 86.8 fL (80.0-94.0); MEAN PLATELET VOLUME 8.1 fl (7.4-10.4); MONOCYTES % 8.2 % (2.0-8.0); NEUTROPHILS % 75.5 % (40.0-76.0); PLATELET 315 x1000/uL (130-400); RED BLOOD CELL COUNT 5.07 mill/uL (4.7-6.1); RED CELL DISTRIBUTION WIDTH 15.1 % (11.6-14.6)
[2020-08-01 08:02] LABS: CHLORIDE 103 mEq/L (98-107)
[2020-08-01] MEDS: LOSARTAN POTASSIUM 100 MG TABLET PO SCH (08:52)
[2020-08-01 12:00] VITALS: BP 107/55
[2020-08-01] MEDS ORDERED: POTASSIUM CHLORIDE 20MEQ TABLET SR PO NR (12:00)
[2020-08-01] MEDS: FOLIC ACID 1 MG, THIAMINE HCL 100 MG, MVI, ADULT NO.1 10 ML in DEXTROSE 5% WATER 1,000 ML IV SCH ×4 (14:00)
[2020-08-01 15:41] LABS: BG BASE EXCESS 5.6 mmol/L (-2.0-2.0); BG CARBOXYHEMOGLOBIN 0.6 % (0.5-1.5); BG DEOXYHEMOGLOBIN 7.5 % (0.0-5.0); BG FRACTION INSPIRED OXYGEN 21; BG HCO3 ACT 31.4 mmol/L (22.0-26.0); BG METHEMOGLOBIN 0.4 % (0.0-1.5); BG OXYGEN SATURATION 92.4 % (92.0-98.5); BG OXYHEMOGLOBIN 91.5 % (94.0-97.0); BG PH 7.416 (7.350-7.450); BG PO2 61.5 mmHg (75.0-100.0); BG SAMPLE SITE RIGHT BRACHIAL; BG TOTAL HEMOGLOBIN 14.9 g/dL (12.0-18.0); BG VENT MODE ROOM AIR
[2020-08-01 16:00] VITALS: BP 111/66
[2020-08-01] MEDS ORDERED: FUROSEMIDE 40MG/4ML VIAL IVP NR (16:00)
[2020-08-01 17:42] LABS: D-DIMER 3.21 mg/L FEU (<0.50)
[2020-08-01 17:43] LABS: ETHANOL BLOOD < 10 mg/dL
[2020-08-01 17:52] LABS: CREATINE KINASE MB FRACTION 3.1 ng/mL (0.5-3.6)
[2020-08-01 19:21] LABS: CLARITY URINE CLEAR (CLEAR); COLOR URINE YELLOW (YELLOW); KETONES URINE NEGATIVE (NEGATIVE); LEUKOCYTE ESTERASE URINE NEGATIVE (NEGATIVE); NITRITE URINE NEGATIVE (NEGATIVE); OCCULT BLOOD URINE NEGATIVE (NEGATIVE); PROTEIN URINE 1+ (NEGATIVE); SPECIFIC GRAVITY URINE 1.023 (1.005-1.030)
[2020-08-01 20:00] VITALS: BP 117/69
[2020-08-01] MEDS: METOPROLOL TARTRATE 25MG TABLET PO SCH (21:13)
[2020-08-01 22:08] LABS: *BARBITURATES SCREEN URINE NEGATIVE (NEGATIVE)
[2020-08-01 22:09] LABS: *AMPHETAMINES SCREEN URINE NEGATIVE (NEGATIVE); *BENZODIAZEPINES SCREEN URINE PRESUMTIVE POSITIVE (NEGATIVE); *COCAINE SCREEN URINE NEGATIVE (NEGATIVE)
[2020-08-01 23:12] LABS: METHADONE URINE SCREEN NEGATIVE (NEGATIVE); OPIATES URINE SCREEN PRESUMTIVE POSITIVE (NEGATIVE); PHENCYCLIDINE URINE SCREEN NEGATIVE (NEGATIVE)
[2020-08-01 23:21] LABS: CANNABINOID URINE SCREEN NEGATIVE (NEGATIVE)
[2020-08-02] VITALS (7 sets, daily range): BP systolic 120–156; BP diastolic 60–88
[2020-08-02] MEDS: DEXT 5%/0.45% NACL 1000ML 1,000 ML IV SCH ×2 (05:21→12:30)
[2020-08-02] MEDS: CHLORDIAZEPOXIDE 25MG CAPSULE PO SCH ×2 (05:31→13:11)
[2020-08-02] MEDS: HYDRALAZINE HCL 100MG TABLET PO SCH ×2 (05:31→13:11)
[2020-08-02 06:39] LABS: BASOPHILS % 0.6 % (0.0-2.0); EOSINOPHILS % 1.2 % (0.0-5.0); HEMATOCRIT. 43.1 % (42.0-52.0); HEMOGLOBIN. 14.1 g/dL (14.0-18.0); LYMPHOCYTES % 19.9 % (20.0-50.0); MEAN CORPUSCULAR HEMOGLOBIN 28.9 pg (28.0-32.0); MEAN PLATELET VOLUME 8.7 fl (7.4-10.4); MONOCYTES % 12.2 % (2.0-8.0); NEUTROPHILS % 66.1 % (40.0-76.0); PLATELET 307 x1000/uL (130-400); RED CELL DISTRIBUTION WIDTH 15.5 % (11.6-14.6)
[2020-08-02] MEDS ORDERED: THROMBIN (BOVINE) 5000 UNITS/VIAL TOP ONE (06:57)
[2020-08-02] MEDS ORDERED: BACITRACIN 50,000 UNITS/VIAL ONE (06:57)
[2020-08-02] MEDS ORDERED: FUROSEMIDE 20MG/2ML VIAL IVP SCH (09:00)
[2020-08-02] MEDS: METOPROLOL TARTRATE 25MG TABLET PO SCH (09:00)
[2020-08-02] MEDS: LOSARTAN POTASSIUM 100 MG TABLET PO SCH (09:00)
[2020-08-02] MEDS ORDERED: REGADENOSON 0.4 MG/5 ML IV NR (10:15)
[2020-08-02] MEDS ORDERED: POTASSIUM CHLORIDE INJ 40 MEQ in DEXT 5% WATER 250 ML IV SCH (11:00)
[2020-08-02 11:02] LABS: T4 FREE 0.9 ng/dL (0.76-1.46)
[2020-08-02] MEDS ORDERED: REGADENOSON 0.4 MG/5 ML IV ONE (13:23)
[2020-08-02] MEDS: FOLIC ACID 1 MG, THIAMINE HCL 100 MG, MVI, ADULT NO.1 10 ML in DEXTROSE 5% WATER 1,000 ML IV SCH ×4 (14:25)
[2020-08-02] MEDS: MORPHINE SULFATE 4 MG/ML CPJ (NOT FOR IM USE) IV PRN (15:10)
[2020-08-02] MEDS ORDERED: HYDR-4009 MT (15:41)
== END 2020-08-02 16:50 | disposition home health service (06) | DRG 551 ==
LOC: ER 23:11 → 5EST 07-31 03:09 → ENRESERV 08-01 03:08 → 5EST 08-01 05:43
PROVIDERS: ADMIT Internal Medicine; ATTEND Internal Medicine
DX: S12.100A Unspecified displaced fracture of second cervical vertebra, initial encounter for closed fracture (principal); J96.01 Acute respiratory failure with hypoxia; K56.609 Unspecified intestinal obstruction, unspecified as to partial versus complete obstruction; J81.1 Chronic pulmonary edema; W19.XXXA Unspecified fall, initial encounter; Y90.7 Blood alcohol level of 200-239 mg/100 ml; E78.5 Hyperlipidemia, unspecified; E87.6 Hypokalemia; F10.129 Alcohol abuse with intoxication, unspecified; I11.0 Hypertensive heart disease with heart failure; I16.0 Hypertensive urgency; I25.10 Atherosclerotic heart disease of native coronary artery without angina pectoris; I50.9 Heart failure, unspecified; X58.XXXA Exposure to other specified factors, initial encounter; G90.8 Other disorders of autonomic nervous system; I65.01 Occlusion and stenosis of right vertebral artery; M47.9 Spondylosis, unspecified; Z20.828 Contact with and (suspected) exposure to other viral communicable diseases; M48.02 Spinal stenosis, cervical region; Z86.73 Personal history of transient ischemic attack (TIA), and cerebral infarction without residual deficits; Z90.49 Acquired absence of other specified parts of digestive tract; Z93.3 Colostomy status; Z95.5 Presence of coronary angioplasty implant and graft; Y93.89 Activity, other specified; Y92.89 Other specified places as the place of occurrence of the external cause; Y99.8 Other external cause status
CPT/HCPCS: 36415; 36600; 70498; 71045; 72141; 76700; 78452; 80048; 80061; 80076; 80305; 80320; 81003; 82375; 82550; 82553; 82805; 83036; 83735; 83880; 84439; 84443; 84484; 85025; 85379; 85384; 86850; 86900; 87426; 93005; 93017; 93306; 97162; 99291; A9500; J1940; J2060; J2270; J2405; J2785; J3411; J3480; J3490; J7060; J7070; Q9967; G0480

== ENCOUNTER 2022-08-29 13:08 | Inpatient (IN) | payer BC, MEDICAID ==
[~2022-08-29] VITALS: Ht 167.6 cm; Wt 84.8 kg
[~2022-08-29 13:08] MED LIST changes: -GABA-531 PO; +GABA-532 PO; +HYDR-4009 MT
[2022-08-29] MEDS ORDERED: METOPROLOL TARTRATE 25MG TABLET PO ONE (14:15)
[2022-08-29] MEDS ORDERED: LORAZEPAM 2MG/ML CPJ IV ONE (14:15)
[2022-08-29] MEDS ORDERED: FUROSEMIDE 20MG/2ML VIAL IVP ONE (14:30)
[2022-08-29 14:59] LABS: BASOPHILS % 1.3 % (0.0-2.0); EOSINOPHILS % 0.2 % (0.0-5.0); HEMATOCRIT. 49.7 % (42.0-52.0); HEMOGLOBIN. 16.5 g/dL (14.0-18.0); MEAN CORPUSCULAR HEMOGLOBIN 28.3 pg (28.0-32.0); MEAN CORPUSCULAR VOLUME 85.3 fL (80.0-94.0); MEAN PLATELET VOLUME 8.7 fl (7.4-10.4); MONOCYTES % 5.8 % (2.0-8.0); NEUTROPHILS % 79.7 % (40.0-76.0); PLATELET 267 x1000/uL (130-400); RED BLOOD CELL COUNT 5.82 mill/uL (4.7-6.1); RED CELL DISTRIBUTION WIDTH 21.2 % (11.6-14.6)
[2022-08-29 15:14] LABS: CHLORIDE 97 mEq/L (98-107)
[2022-08-29] MEDS ORDERED: NITROGLYCERIN 0.4MG TABLET SL SL ONE (16:15)
[2022-08-29] MEDS ORDERED: CHLORDIAZEPOXIDE 25MG CAPSULE PO ONE ×2 (16:30)
[2022-08-29] MEDS ORDERED: FOLIC ACID 1 MG, THIAMINE HCL 100 MG, MVI, ADULT NO.1 10 ML in DEXTROSE 5% WATER 1,000 ML IV ONE ×4 (16:30)
[2022-08-29 16:49] LABS: ETHANOL BLOOD 132 mg/dL
[2022-08-29] MEDS ORDERED: ONDANSETRON HCL 4MG/2ML INJ IV PRN (18:00)
[2022-08-29] MEDS ORDERED: IPRATROPIUM/ALBUTEROL 0.5-3(2.5)MG/3ML NEB NEB PRN (18:00)
[2022-08-29] MEDS ORDERED: DIPHENHYDRAMINE 50MG/ML VIAL IV PRN (18:00)
[2022-08-29] MEDS ORDERED: LORAZEPAM 2MG/ML CPJ IV PRN (18:00)
[2022-08-29] MEDS ORDERED: MORPHINE SULFATE 2 MG/ML CPJ (NOT FOR IM USE) IV PRN (18:00)
[2022-08-29] MEDS: PANTOPRAZOLE SODIUM 40 MG/VIAL IV SCH (18:08)
[2022-08-29] MEDS ORDERED: ENOXAPARIN 40MG/0.4ML SYR SUBCUT SCH (18:15)
[2022-08-29] MEDS ORDERED: IOHEXOL-300 100 ML BOTTLE ONE (18:15)
[2022-08-29] MEDS ORDERED: NALOXONE HCL 0.4MG/ML VIAL IV PRN (18:30)
[2022-08-29] MEDS ORDERED: METOPROLOL TARTRATE 25MG TABLET PO NR (18:30)
[2022-08-29] MEDS ORDERED: MVI, ADULT NO.1 10 ML, FOLIC ACID 1 MG, THIAMINE HCL 100 MG in DEXT 5%/0.45% NACL 1000M... IV SCH ×4 (19:00)
[2022-08-29] MEDS ORDERED: METOPROLOL TARTRATE 25MG TABLET PO SCH (21:00)
[2022-08-29] MEDS: METOPROLOL TARTRATE 50MG TABLET PO SCH (23:24)
[2022-08-29] MEDS: CHLORDIAZEPOXIDE 25MG CAPSULE PO SCH (23:24)
[2022-08-30] VITALS (7 sets, daily range): BP systolic 133–163; BP diastolic 91–113
[2022-08-30] MEDS: CLONIDINE 0.2MG TABLET PO PRN ×2 (03:01→23:53)
[2022-08-30] MEDS ORDERED: IPRATROPIUM BROMIDE (0.02%) 0.5MG/2.5ML NEB HHN PRN (05:15)
[2022-08-30] MEDS ORDERED: ALBUTEROL (0.083%) 2.5MG/3ML NEB HHN PRN (05:15)
[2022-08-30] MEDS: CHLORDIAZEPOXIDE 25MG CAPSULE PO SCH ×3 (05:32→21:38)
[2022-08-30 07:42] LABS: BASOPHILS % 0.8 % (0.0-2.0); EOSINOPHILS % 0.9 % (0.0-5.0); HEMATOCRIT. 44.8 % (42.0-52.0); HEMOGLOBIN. 15.3 g/dL (14.0-18.0); LYMPHOCYTES % 8.4 % (20.0-50.0); MEAN CORPUSCULAR VOLUME 84.9 fL (80.0-94.0); MEAN PLATELET VOLUME 8.7 fl (7.4-10.4); MONOCYTES % 8.9 % (2.0-8.0); PLATELET 205 x1000/uL (130-400); RED BLOOD CELL COUNT 5.28 mill/uL (4.7-6.1)
[2022-08-30 07:46] LABS: CHLORIDE 94 mEq/L (98-107)
[2022-08-30 07:49] LABS: CREATINE KINASE MB FRACTION 1.9 ng/mL (0.5-3.6)
[2022-08-30 08:04] LABS: T4 FREE 0.78 ng/dL (0.76-1.46)
[2022-08-30] MEDS: PANTOPRAZOLE SODIUM 40 MG/VIAL IV SCH (10:27)
[2022-08-30] MEDS: METOPROLOL TARTRATE 50MG TABLET PO SCH ×2 (10:35→20:19)
[2022-08-30 13:27] LABS: CREATINE KINASE MB FRACTION 1.8 ng/mL (0.5-3.6)
[2022-08-30] MEDS ORDERED: MVI, ADULT NO.1 10 ML, FOLIC ACID 1 MG, THIAMINE HCL 100 MG in DEXT 5%/0.45% NACL 1000M... IV SCH ×4 (14:00)
[2022-08-30] MEDS ORDERED: POTASSIUM CHLORIDE INJ 40 MEQ in DEXT 5% WATER 250 ML IV ONE (14:30)
[2022-08-30] MEDS ORDERED: LEVOFLOXACIN 500MG PREMIX 100 ML IV SCH (16:00)
[2022-08-30] MEDS: GUAIFENESIN/DM 600MG/30MG ER TAB 12HR PO SCH (16:26)
[2022-08-30] MEDS: KCL 20MEQ/100ML X 2 FOR TOTAL KCL 40MEQ/200ML IV SCH ×2 (16:28→17:30)
[2022-08-31] VITALS: BP 156/107
[2022-08-31] MEDS: GUAIFENESIN/DM 600MG/30MG ER TAB 12HR PO SCH ×2 (03:03→14:35)
[2022-08-31 04:00] VITALS: BP 129/86
[2022-08-31] MEDS: CHLORDIAZEPOXIDE 25MG CAPSULE PO SCH ×3 (05:46→21:12)
[2022-08-31 08:00] VITALS: BP 116/72
[2022-08-31] MEDS: METOPROLOL TARTRATE 50MG TABLET PO SCH ×2 (08:34→20:21)
[2022-08-31] MEDS: PREDNISONE 20MG TABLET PO SCH (08:35)
[2022-08-31] MEDS: PANTOPRAZOLE SODIUM 40 MG/VIAL IV SCH (08:35)
[2022-08-31 08:36] LABS: BASOPHILS % 0.9 % (0.0-2.0); EOSINOPHILS % 3.6 % (0.0-5.0); HEMATOCRIT. 44.3 % (42.0-52.0); HEMOGLOBIN. 14.8 g/dL (14.0-18.0); LYMPHOCYTES % 16.8 % (20.0-50.0); MEAN CORPUSCULAR HEMOGLOBIN 28.7 pg (28.0-32.0); MEAN CORPUSCULAR VOLUME 85.6 fL (80.0-94.0); MEAN PLATELET VOLUME 9.2 fl (7.4-10.4); MONOCYTES % 10.4 % (2.0-8.0); NEUTROPHILS % 68.3 % (40.0-76.0); PLATELET 165 x1000/uL (130-400); RED BLOOD CELL COUNT 5.18 mill/uL (4.7-6.1)
[2022-08-31] MEDS: FUROSEMIDE 40MG TABLET PO SCH ×2 (11:40→11:45)
[2022-08-31 12:00] VITALS: BP 146/90
[2022-08-31] MEDS ORDERED: POTASSIUM CHLORIDE 20MEQ TABLET SR PO NR ×2 (12:30→17:00)
[2022-08-31] MEDS: DEXT 5%/0.45% NACL 1000ML 1,000 ML IV SCH (14:36)
[2022-08-31 16:00] VITALS: BP 118/85
[2022-08-31] MEDS: LEVOFLOXACIN 250MG PREMIX 100 ML IV SCH (16:14)
[2022-08-31 20:00] VITALS: BP 135/88
[2022-09-01] VITALS: BP 128/60
[2022-09-01] MEDS: GUAIFENESIN/DM 600MG/30MG ER TAB 12HR PO SCH ×2 (01:58→13:12)
[2022-09-01 04:00] VITALS: BP 135/83
[2022-09-01] MEDS: DEXT 5%/0.45% NACL 1000ML 1,000 ML IV SCH (04:20)
[2022-09-01] MEDS: CHLORDIAZEPOXIDE 25MG CAPSULE PO SCH ×2 (05:15→13:12)
[2022-09-01 08:00] VITALS: BP 132/79
[2022-09-01] MEDS: METOPROLOL TARTRATE 50MG TABLET PO SCH (08:18)
[2022-09-01] MEDS: FUROSEMIDE 40MG TABLET PO SCH (08:19)
[2022-09-01] MEDS: PREDNISONE 20MG TABLET PO SCH (08:19)
[2022-09-01] MEDS ORDERED: FAMOTIDINE 20MG/2ML VIAL IV SCH (09:00)
[2022-09-01] MEDS: ALBUTEROL (0.083%) 2.5MG/3ML NEB HHN SCH ×2 (09:07→12:45)
[2022-09-01] MEDS: IPRATROPIUM BROMIDE (0.02%) 0.5MG/2.5ML NEB HHN SCH ×2 (09:11→12:45)
[2022-09-01 12:00] VITALS: BP 135/87
[2022-09-01] MEDS ORDERED: FUROSEMIDE 40MG TABLET PO SCH (12:00)
[2022-09-01] MEDS: LEVOFLOXACIN 250MG PREMIX 100 ML IV SCH (15:28)
[2022-09-01 15:49] VITALS: BP 135/87
== END 2022-09-01 16:40 | disposition home or self-care (01) | DRG 552 ==
LOC: ER 14:53 → MICUSO 17:12 → EDBEDREQTM 17:16 → EDBEDREQ 17:16 → SUPCPDRO 18:08 → 8WST 08-30 05:05
PROVIDERS: ADMIT Internal Medicine; ATTEND Internal Medicine
DX: M47.12 Other spondylosis with myelopathy, cervical region (principal); E87.6 Hypokalemia; I11.0 Hypertensive heart disease with heart failure; F10.129 Alcohol abuse with intoxication, unspecified; K76.0 Fatty (change of) liver, not elsewhere classified; K21.9 Gastro-esophageal reflux disease without esophagitis; Z20.822 Contact with and (suspected) exposure to COVID-19; I50.9 Heart failure, unspecified; E78.00 Pure hypercholesterolemia, unspecified; J45.909 Unspecified asthma, uncomplicated; N28.1 Cyst of kidney, acquired; I25.2 Old myocardial infarction; Z86.73 Personal history of transient ischemic attack (TIA), and cerebral infarction without residual deficits; Z96.649 Presence of unspecified artificial hip joint; Z79.02 Long term (current) use of antithrombotics/antiplatelets; Z87.891 Personal history of nicotine dependence; Z95.5 Presence of coronary angioplasty implant and graft; Y90.6 Blood alcohol level of 120-199 mg/100 ml
CPT/HCPCS: 36415; 71045; 71275; 76700; 80048; 80053; 80061; 80320; 82550; 82553; 82962; 83036; 83735; 83880; 84439; 84443; 84484; 85025; 85379; 87426; 93005; 93306; 93970; 94640; 99285; C9113; J1940; J1956; J2060; J2405; J3411; J3480; J3490; J7070; J7512; Q9967; G0480